=== PATIENT | female | born 1965 | race Caucasian/White ===

== ENCOUNTER → 2021-04-06 15:30 | Outpatient (BNVA) | payer SELFPAY | PROVIDERS: Family Provider Family Medicine; Visit Provider Emergency Medicine | DX: R05.9 Cough, unspecified (principal); R06.02 Shortness of breath; J44.1 Chronic obstructive pulmonary disease with (acute) exacerbation | CPT/HCPCS: 71046 ==

== ENCOUNTER → 2022-03-26 13:23 | Outpatient (BNVA) | payer SELFPAY | PROVIDERS: Family Provider Family Medicine; Visit Provider Emergency Medicine | DX: R68.89 Other general symptoms and signs (principal); R51.9 Headache, unspecified; J10.1 Influenza due to other identified influenza virus with other respiratory manifestations; G44.89 Other headache syndrome | CPT/HCPCS: 87400 ==